=== PATIENT | male | born 1985 | race American Indian/Alaskan Native ===

== ENCOUNTER 2017-06-22 10:57 | Emergency (ER) | payer OTHER ==
[2017-06-22 11:58] VITALS: BP 110/66
[2017-06-22 12:46] LABS: Basophils % (Auto) 0.1 % (0.0-1.8); Hematocrit 44.8 % (35.5-45.6); Hemoglobin 14.3 gm/dl (11.8-15.2); Lymphocytes # (Auto) 0.6 K/mm3 (1.2-5.4); Mean Corpuscular HGB Conc 32 % (32-34); Mean Corpuscular Hemoglobin 26 pg (28-32); Mean Corpuscular Volume 83 fl (84-94); Monocytes # (Auto) 0.3 K/mm3 (0.0-0.8); Monocytes % (Auto) 5.2 % (0.0-7.3); Platelet Count 169 K/mm3 (140-440); Red Blood Count 5.41 M/mm3 (3.65-5.03); Red Cell Distribution Width 14.2 % (13.2-15.2)
[2017-06-22 13:06] LABS: Alanine Aminotransferase 9 units/L (7-56); Albumin 4.6 g/dL (3.9-5); BUN/Creatinine Ratio 8; Blood Urea Nitrogen 8 mg/dL (9-20); Calcium 9.6 mg/dL (8.4-10.2); Hemolysis Index 19
== END 2017-06-22 16:57 | disposition left against medical advice (07) ==
LOC: ED 10:57
DX: R10.9 Unspecified abdominal pain (principal); Z53.21 Procedure and treatment not carried out due to patient leaving prior to being seen by health care provider
CPT/HCPCS: 36415; 80053; 85025

== ENCOUNTER 2019-01-31 05:19 | Emergency (ER) | payer OTHER ==
[2019-01-31 05:31] VITALS: BP 106/70
[2019-01-31] MEDS ORDERED: IBUPROFEN PO ONE (07:39)
--- NOTE | 2019-01-31 08:20 | XRay Report ---
CHEST 2 VIEWS INDICATION: Chest pain for 2 days. COMPARISON: None FINDINGS: Support devices: None. Heart: Within normal limits. Lungs/pleura: No acute air space or interstitial disease. No pneumothorax. Additional findings: None. IMPRESSION: No acute findings. Signer Name: Jono Curry Jr, MD Signed: 01/31/2019 8:15 AM Workstation Name: [id number]
--- NOTE | 2019-01-31 08:53 | Emergency Department Report ---
ED General Adult HPI - General Chief complaint: Headache Stated complaint: NOT FEELING WELL Time Seen by Provider: 01/31/19 07:33 Source: patient Mode of arrival: Ambulatory Limitations: No Limitations - History of Present Illness Initial comments: This is a 33-year-old male presents to ED complaining of generalized body aches headache and chills that began yesterday. Patient denies fever/cough/runny nose is recent illness or any trauma. Patient states headache is localized to frontal headache he describes the headache as intermittent dull throbbing ache in nature. She also states. 4 days ago he experienced chest pain which resolved. Patient's this chest pain is generalized and is intermittent Severity scale (0 -10): 5 - Related Data Previous Rx's Medication Instructions Recorded Last Taken Type Ibuprofen [Motrin] 600 mg PO Q8H PRN #30 tablet 02/25/13 Unknown Rx cephALEXin [Keflex] 500 mg PO Q6H #40 capsule 02/25/13 Unknown Rx Meclizine [Antivert] 25 mg PO TID PRN #15 tablet 03/28/16 Unknown Rx Ibuprofen [Motrin 800 MG tab] 800 mg PO TID #30 tablet 01/31/19 Unknown Rx Loratadine [Claritin] 10 mg PO DAILY #15 tablet 01/31/19 Unknown Rx Allergies Allergy/AdvReac Type Severity Reaction Status Date / Time No Known Allergies Allergy Verified 03/04/13 16:14 ED Review of Systems ROS: Stated complaint: NOT FEELING WELL Other details as noted in HPI Comment: All other systems reviewed and negative ED Past Medical Hx - Past Medical History Previous Medical History?: Yes Hx GERD: Yes Additional medical history: peptic ulcer - Surgical History Past Surgical History?: No - Social History Smoking Status: Current Every Day Smoker Substance Use Type: None - Medications Home Medications: Home Medications Medication Instructions Recorded Confirmed Last Taken Type Ibuprofen [Motrin] 600 mg PO Q8H PRN #30 tablet 02/25/13 Unknown Rx cephALEXin [Keflex] 500 mg PO Q6H #40 capsule 02/25/13 Unknown Rx Meclizine [Antivert] 25 mg PO TID PRN #15 tablet 03/28/16 Unknown Rx Ibuprofen [Motrin 800 MG tab] 800 mg PO TID #30 tablet 01/31/19 Unknown Rx Loratadine [Claritin] 10 mg PO DAILY #15 tablet 01/31/19 Unknown Rx ED Physical Exam - General Limitations: No Limitations General appearance: alert, in no apparent distress - Head Head exam: Present: atraumatic, normocephalic - Eye Eye exam: Present: normal appearance, PERRL, EOMI Pupils: Present: normal accommodation - ENT ENT exam: Present: mucous membranes moist - Neck Neck exam: Present: normal inspection, full ROM. Absent: tenderness, lymphadenopathy - Respiratory Respiratory exam: Present: normal lung sounds bilaterally. Absent: respiratory distress - Cardiovascular Cardiovascular Exam: Present: regular rate, normal rhythm. Absent: systolic murmur, diastolic murmur, rubs, gallop - GI/Abdominal GI/Abdominal exam: Present: soft, normal bowel sounds - Rectal Rectal exam: Present: deferred - Extremities Exam Extremities exam: Present: normal inspection - Back Exam Back exam: Present: normal inspection - Neurological Exam Neurological exam: Present: alert, oriented X3, CN II-XII intact, normal gait, reflexes normal, other (none neurological deficit). Absent: motor sensory deficit - Psychiatric Psychiatric exam: Present: normal affect, normal mood - Skin Skin exam: Present: warm, dry, intact, normal color. Absent: rash ED Course Vital Signs 01/31/19 01/31/19 05:25 07:43 Temperature 98.7 F Pulse Rate 75 Respiratory 16 16 Rate Blood Pressure 106/70 O2 Sat by Pulse 99 Oximetry ED Medical Decision Making - Radiology Data Radiology results: report reviewed, image reviewed CHEST 2 VIEWS INDICATION: Chest pain for 2 days. COMPARISON: None FINDINGS: Support devices: None. Heart: Within normal limits. Lungs/pleura: No acute air space or interstitial disease. No pneumothorax. Additional findings: None. IMPRESSION: No acute findings. Signer Name: Jono Gentile Jr, MD Signed: 01/31/2019 8:15 AM Workstation Name: [id number] Transcribed By: TTR Dictated By: JONO GENTILE JR, MD Electronically Authenticated By: JONO GENTILE JR, MD Signed Date/Time: 01/31/19 0815 - Medical Decision Making 33-year-old male presents with acute onset of headache, chest pain that is not resolved. Chest x-ray shows no acute findings. Discussed findings with the patient. Discussed the patient and symptomatic relief with Motrin for pain and Claritin for sinus allergies. Discussed the patient to follow up primary care physician. Past sensory normal patient is in no acute distress patient received Motrin for pain and 18. Patient is comfortable in the ED. He'll be discharged home with follow-up instructions. Critical care attestation.: If time is entered above; I have spent that time in minutes in the direct care of this critically ill patient, excluding procedure time. ED Disposition Clinical Impression: Acute headache Disposition: DC-01 TO HOME OR SELFCARE Is pt being admited?: No Does the pt Need Aspirin: No Condition: Stable Instructions: Acute Headache (ED) Additional Instructions: Make sure to follow up with the primary care physician as discussed. Take all your medications as you've been prescribed. If you have any worsening symptoms or develop new symptoms please return to ED immediately. Prescriptions: Loratadine [Claritin] 10 mg PO DAILY #15 tablet Ibuprofen [Motrin 800 MG tab] 800 mg PO TID #30 tablet Referrals: FRANDY MARIA MD [Primary Care Provider] - 3-5 Days Forms: Work/School Release Form(ED) Time of Disposition: 08:57
== END 2019-01-31 09:18 | disposition home or self-care (01) ==
LOC: ED 05:19
DX: R51 Headache (principal); M79.18 Myalgia, other site; K21.9 Gastro-esophageal reflux disease without esophagitis; F17.200 Nicotine dependence, unspecified, uncomplicated; Z79.899 Other long term (current) drug therapy
CPT/HCPCS: 71046